=== PATIENT | female | born 1945 | race Caucasian/White ===

== ENCOUNTER 2023-07-11 09:52 | Outpatient (REF) | payer MEDICARE, SELFPAY | END 2023-07-11 09:53 | disposition home or self-care (01) | LOC: HO.HOSX 09:52 | PROVIDERS: Visit Provider Orthopaedic Surgery | DX: M25.511 Pain in right shoulder (principal) | CPT/HCPCS: 20610; 73030; 99202; J3301 ==

== ENCOUNTER 2023-07-11 09:53 | Outpatient (AMB) | payer MEDICARE, SELFPAY ==
--- NOTE | 2023-07-11 09:54 | MHC.OFFVIS ---
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 Patient reports pain has been present for years that will fluctuate in intensity. States her pain starts in her shoulder and will occasionally radiate down her whole arm. Finds very little relief with ibuprofen and Tylenol. She states that she aggravated her shoulder several months ago while she was walking her daughter's dog and it pulled on the leash. She reports mild weakness when lifting her right hand above shoulder height. Allergies No Known Allergies Allergy (Verified 07/11/23 10:10) Medication List - Last Reconciled 07/11/23 by Harjit Alcantara MD No Known Home Meds [facility] Surgical History History of bladder surgery Social History (Updated 07/11/23 @ 10:06 by SCAR Crawford) Patient Tobacco Use Status: Never used Tobacco Current occupational status: retired Current occupation: right hand dominant Physical Exam Vital Signs: BMI result Body Mass Index 21.9 Const Other: Well-nourished well-developed very friendly female awake alert and oriented x3 in no acute distress Extrem Other: Bilateral upper extremity examination shows good capillary refill, no skin lesions noted, normal sensation light touch Right shoulder examination shows slightly decreased range of motion when compared to her left shoulder, 4+ out of 5 strength with supraspinatus testing, positive impingement signs, tenderness over her acromioclavicular joint, no instability Office Procedures Joint Injection/Drain Joint Injection/Drain Primary Site: right shoulder Prep: site was prepped using aseptic technique Injected: 40 mg of, Kenalog and 1% plain lidocaine Procedure: The patient tolerated the procedure well Coding 78537 - Large joint Procedure code (CPT) selection complete Results Reviewed Results Reviewed: X-rays of the patient's right shoulder taken today show severe acromioclavicular joint narrowing, a type 2 acromion, no acute bony abnormalities Assessment & Plan Assessment & Plan (1) Right shoulder pain: Code(s): M25.511 - Pain in right shoulder Plan Ms. Medrano presents with right shoulder pain most likely due to impingement syndrome and rotator cuff tendinosis. I had a lengthy discussion with the patient regarding the treatment options. The risks and benefits of a right shoulder cortisone injection were discussed at length with the patient. The patient wished to proceed. She tolerated the right shoulder injection well. She will continue with her home stretching program to prevent stiffness. She will follow up with me on an as-needed basis should her symptoms not plateau at an unacceptable level over the next few months. I spent 22 minutes in reviewing the patient's records and imaging studies, seeing the patient and documenting in the medical record. Orders: Orders XR shoulder RT min 2V Today M25.511 - Pain in right shoulder AMB Joint Injection/Aspiration Today M25.511 - Pain in right shoulder Coding Level of Care Code New Pt Level 2 (93783) Diagnoses Right shoulder pain M25.511 CPT Codes Coding - 19548 Large joint: 14055 - Large joint ([id number])
[2023-07-11 10:06] VITALS: BMI 21.9
== END 2023-07-11 10:32 | disposition home or self-care (01) ==
PROVIDERS: Visit Provider Orthopaedic Surgery
DX: M25.511 Pain in right shoulder (principal)
CPT/HCPCS: 20610; 99203

== ENCOUNTER 2023-10-10 09:23 | Outpatient (AMB) | payer MEDICARE, SELFPAY ==
--- NOTE | 2023-10-10 09:34 | MHC.OFFVIS ---
Intake Vital Signs 10/10/23 09:35 Height 5 ft 1 in Weight 116 lb BMI 21.9 Intake Visit Reasons: OV-right shoulder injection-last inject. 07/11/23 Intake Note: Makayla is a 77 year old Right hand dominate female who presents with Right shoulder pain. Patient reports her last injection was on 07/11/2023 and it gave her good relief. She states that she is getting pain in her Left shoulder now. She describes her pains as achy in nature. She continues with her home stretching program. She does not take any medicines for discomfort. Allergies No Known Allergies Allergy (Verified 10/10/23 09:43) Medication List - Last Reconciled 10/10/23 by Harjit Alcantara MD No Known Home Meds [facility] Surgical History History of bladder surgery Social History Patient Tobacco Use Status: Never used Tobacco Current occupational status: retired Current occupation: right hand dominant Physical Exam Vital Signs: BMI result Body Mass Index 21.9 Const Other: Well-nourished well-developed very friendly female awake alert and oriented x3 in no acute distress Extrem Other: Bilateral upper extremity examination shows good capillary refill, no skin lesions noted, normal sensation light touch Bilateral shoulder examination shows forward flexion to 170 degrees, external rotation of 50 degrees, internal rotation to level L2, 4+ out of 5 strength with supraspinatus testing, positive impingement signs, no instability Assessment & Plan Assessment & Plan (1) Right shoulder pain: Code(s): M25.511 - Pain in right shoulder Plan Ms. Medrano presents with intermittent discomfort in both of her shoulders due to impingement syndrome. I had a lengthy discussion with the patient regarding the treatment options. At this point the patient's symptoms are tolerable to her. She will continue with her activity modifications. She will follow up with me on an as-needed basis should her symptoms worsen in any way. I spent 19 minutes in reviewing the patient's records and imaging studies, seeing the patient and documenting in the medical record. Coding Level of Care Code Est Pt Level 2 (15939) Diagnoses Right shoulder pain M25.511
[2023-10-10 09:35] VITALS: BMI 21.9
== END 2023-10-10 10:22 | disposition home or self-care (01) ==
PROVIDERS: Visit Provider Orthopaedic Surgery
DX: M75.41 Impingement syndrome of right shoulder (principal)
CPT/HCPCS: 99212

== ENCOUNTER → 2023-10-10 09:23 | Outpatient (BNVA) | payer MEDICARE, SELFPAY | PROVIDERS: Visit Provider Orthopaedic Surgery | DX: M25.511 Pain in right shoulder (principal) | CPT/HCPCS: 99212 ==